=== PATIENT | female | born 1960 | race Native Hawaiian/Other Pacific Islander ===

== ENCOUNTER 2018-07-23 08:18 | Emergency (ER) | payer OTHER ==
[2018-07-23 08:28] VITALS: TEMP 99.2
[2018-07-23] MEDS ORDERED: Labetalol 5 mg/ml Inj 20ML IV STA ×2 (09:04→09:50)
--- NOTE | 2018-07-23 09:20 | RAD ---
Date of service: 07/23/2018 HISTORY: SOB COMPARISON: No prior. TECHNIQUE: Chest PA and lateral FINDINGS: LUNGS: No active pulmonary disease. PLEURA: No significant pleural effusion identified. No pneumothorax apparent. CARDIOVASCULAR: Calcific atherosclerotic changes are seen related to the thoracic aorta. Cardiomegaly is identified. Borderline pulmonary vascular congestion. No pulmonary vascular congestion. OSSEOUS STRUCTURES: No significant abnormalities. VISUALIZED UPPER ABDOMEN: Normal. OTHER FINDINGS: None. IMPRESSION: Cardiomegaly and borderline pulmonary vascular congestion identified. No infiltrate bilaterally. No pleural effusion either.
[2018-07-23] MEDS ORDERED: Labetalol 5mg/ml (4ml) ONE ×2 (09:33→10:07)
[2018-07-23 09:34] LABS: BASO # 0.1 K/uL (0.0-0.2); EOS # 0.2 K/uL (0.0-0.7); EOS % 3.1 % (0.0-4.0); HEMOGLOBIN 13.9 g/dL (11.0-16.0); LYMPH # 1.3 K/uL (1.0-4.3); LYMPH % 20.5 % (20.0-40.0); MEAN CORPUSCULAR HEMOGLOBIN 32.6 pg (27.0-31.0); MEAN CORPUSCULAR HGB CONC 34.3 g/dL (33.0-37.0); MEAN PLATELET VOLUME 7.3 fL (7.2-11.7); MONO # 0.5 K/uL (0.0-0.8); MONO % 7.4 % (0.0-10.0); NEUT # 4.2 K/uL (1.8-7.0); RBC 4.28 Mil/uL (3.80-5.20); WHITE BLOOD COUNT 6.2 K/uL (4.8-10.8)
[2018-07-23 09:37] VITALS: O2SAT 97
[2018-07-23 09:54] LABS: ALB/GLOB RATIO 1.3 (1.0-2.1); ALBUMIN 4.4 g/dL (3.5-5.0); ALT/SGPT 28 U/L (9-52); AST/SGOT 22 U/L (14-36); BLOOD UREA NITROGEN 11 mg/dL (7-17); GFR NON-AFRICAN AMERICAN > 60
[2018-07-23 10:09] LABS: B-TYPE NATRIURETIC PEPTIDE 223 pg/mL (0-900)
[2018-07-23 10:10] VITALS: PULSE 60; RESP 16
[2018-07-23 10:27] VITALS: BP 174/83
--- NOTE | 2018-07-23 10:42 | C.PDOC ---
History Of Present Illness 58-year-old female, presents to the emergency department with complaints of high blood pressure. Patient is on Atenolol twice a day. States she took her blood pressure at home and was found to be elevated. Denies any chest pain, shortness of breath, nausea/vomiting. No other complaints at this time. Time Seen by Provider: 07/23/18 08:44 Chief Complaint (Nursing): High Blood Pressure History Per: Patient History/Exam Limitations: no limitations Past Medical History Reviewed: Historical Data, Nursing Documentation, Vital Signs Vital Signs: Last Vital Signs Temp 99.2 F 07/23/18 08:21 Pulse 60 07/23/18 10:09 Resp 16 07/23/18 10:27 BP 174/83 H 07/23/18 10:27 Pulse Ox 97 07/23/18 10:09 - Medical History PMH: HTN, Hyperlipidemia, Multiple Sclerosis Family History: States: No Known Family Hx - Social History Hx Alcohol Use: No Hx Substance Use: No - Immunization History Hx Tetanus Toxoid Vaccination: No Hx Influenza Vaccination: Yes Hx Pneumococcal Vaccination: No Review Of Systems Constitutional: Negative for: Fever, Chills Cardiovascular: Negative for: Chest Pain Respiratory: Negative for: Cough, Shortness of Breath Gastrointestinal: Negative for: Nausea, Vomiting Skin: Negative for: Rash Neurological: Negative for: Weakness, Numbness, Headache, Dizziness Physical Exam - Physical Exam Appears: Non-toxic, No Acute Distress Skin: Warm, Dry, No Rash Head: Atraumatic Eye(s): bilateral: Normal Inspection, PERRL, EOMI Nose: Normal Oral Mucosa: Moist Lips: Normal Appearing Neck: Normal ROM Cardiovascular: Rhythm Regular, No Murmur Respiratory: Normal Breath Sounds, No Accessory Muscle Use Back: Normal Inspection Extremity: Normal ROM, No Deformity Neurological/Psych: Oriented x3, Normal Speech ED Course And Treatment - Laboratory Results Result Diagrams: 07/23/18 09:30 07/23/18 09:30 O2 Sat by Pulse Oximetry: 97 Pulse Ox Interpretation: Normal (RA) Medical Decision Making Medical Decision Making: discussed blood pressure management with patient and need to follow up with pmd in regards to bp management patient is symptomatic and will be discharged home to follow up accordingly within 2 days. patient states understanding. Disposition Counseled Patient/Family Regarding: Studies Performed, Diagnosis, Need For Followup, Rx Given - Disposition Disposition: HOME/ ROUTINE Disposition Time: 10:40 Condition: STABLE Additional Instructions: follow up with your doctor within 2 days call to make an appointment continue your blood pressure medication call your doctor to discuss adjustment return to ER if [id number] worsens or progress Instructions: High Blood Pressure in Adults, Medicines for High Blood Pressure Forms: [facility] (Thai), General Discharge Instructions - Clinical Impression Clinical Impression: Hypertension - Scribe Statement The provider has reviewed the documentation as recorded by the Scribe (Joaquin Lopez) Provider Attestation: All medical record entries made by the Scribe were at my direction and personally dictated by me. I have reviewed the chart and agree that the record accurately reflects my personal performance of the history, physical exam, medical decision making, and the department course for this patient. I have also personally directed, reviewed, and agree with the discharge instructions and disposition.
--- NOTE | 2018-07-24 21:46 | CARD ---
APPROVED REPORT Date of service: 07/23/2018 EKG Measurement Heart [id number] <Conclusion> Sinus bradycardia with 1st degree AV block Cannot rule out Anterior infarct, age undetermined Abnormal ECG
== END 2018-07-23 11:13 | disposition home or self-care (01) ==
LOC: C.ER 08:18
DX: I10 Essential (primary) hypertension (principal)